=== PATIENT | male | born 1950 | race Caucasian/White ===

== ENCOUNTER → 2016-05-28 | Outpatient (CLI) | payer BC ==
[2016-05-28 12:45] LABS: CHOLESTEROL/HDL RATIO 3.5
[2016-05-28 12:50] LABS: ESTIMATED AVERAGE GLUCOSE 120 mg/dl; HA1C FLAG Normal (Normal)
== END | disposition home or self-care (01) ==
LOC: C.LABBFT 09:35
PROVIDERS: ATTEND Internal Medicine
DX: R73.09 Other abnormal glucose (principal); E78.5 Hyperlipidemia, unspecified

== ENCOUNTER → 2016-12-04 | Outpatient (CLI) | payer BC ==
[2016-12-04 12:15] LABS: URINE APPEARANCE CLEAR (CLEAR); URINE BILIRUBIN NEG (NEG); URINE COLOR YELLOW; URINE NITRITE NEG (NEG); URINE PH 6.5 (4.5-7.5); URINE SPECIFIC GRAVITY 1.023 (1.000-1.030); UROBILINOGEN NEG (NEG); ZZUR CULT IF INDIC CLEAN CATCH NO
[2016-12-04 12:18] LABS: MANUAL MICROSCOPIC REQUIRED? NO; REVIEW REQ? NO
[2016-12-04 13:06] LABS: ESTIMATED AVERAGE GLUCOSE 120 mg/dl; HA1C FLAG Normal (Normal)
[2016-12-04 17:33] LABS: ALT/SGPT 27 U/L (12-78); AST/SGOT 19 U/L (15-37); BLOOD UREA NITROGEN 15 mg/dl (7-18); CALCIUM 8.7 mg/dl (8.5-10.1); CARBON DIOXIDE 28 mmol/L (21-32); CHLORIDE 110 mmol/L (98-107); GLUCOSE 98 mg/dl (70-99); POTASSIUM 4.4 mmol/L (3.5-5.1); SODIUM 141 mmol/L (136-145)
[2016-12-04 17:38] LABS: ALB/GLOB RATIO 1.1 (0.9-2); ALKALINE PHOSPHATASE 91 U/L (45-117); CHOLESTEROL 185 mg/dl (0-200); CHOLESTEROL/HDL RATIO 4.2; HDL CHOLESTEROL 44 mg/dl; LDL CHOLESTEROL CALCULATED 120 mg/dl; PROSTATE SPECIFIC ANTIGEN 0.459 ng/ml (0.000-4.000); TRIGLYCERIDES 103 mg/dl (0-150); VERY LOW DENSITY LIPOPROT CALC 21 mg/dl
== END | disposition home or self-care (01) ==
LOC: C.LABBFT 11:08
PROVIDERS: ATTEND Physician Assistant Medical
DX: N40.1 Benign prostatic hyperplasia with lower urinary tract symptoms (principal); E78.5 Hyperlipidemia, unspecified; R73.03 Prediabetes

== ENCOUNTER 2019-02-02 12:10 | Inpatient (IN) ==
[2019-02-02 13:01] LABS: Basophils # (auto) 0.02 K/uL (0-0.2); Basophils % (auto) 0.3 %; Eosinophils % (auto) 1.6 %; Hematocrit (blood only) 42.6 % (42-52); Hemoglobin 14.5 g/dL (14.0-18.0); Immature Granulocytes # (auto) 0.02 K/uL (0.00-0.02); Immature Granulocytes % (auto) 0.3 %; Lymphocytes # (auto) 2.67 K/uL (1.2-3.4); Lymphocytes % (auto) 43.2 %; Mean Corpuscular Hemoglobin 30.1 pg (25-34); Mean Corpuscular Volume 88.4 fL (80-100); Monocytes # (auto) 0.57 K/uL (0.11-0.59); Monocytes % (auto) 9.2 %; Neutrophils % (auto) 45.4 %; Platelet Count 229 K/uL (130-400); RDW Coefficient of Variation 13.6 % (11.5-14.5); RDW Standard Deviation 44.4 fL (36.4-46.3); Red Blood Count 4.82 M/uL (4.7-6.1); White Blood Count 6.18 K/uL (4.8-10.8)
[2019-02-02 13:08] LABS: Alanine Aminotransferase 23 U/L (12-78); Albumin Level 3.7 gm/dl (3.4-5.0); Aspartate Aminotransferase 16 U/L (15-37); BUN Creatinine Ratio 10.7 (10-20); Blood Urea Nitrogen 13 mg/dl (7-18); Calcium 8.6 mg/dl (8.5-10.1); Carbon Dioxide 18 mmol/L (21-32); Chloride 107 mmol/L (98-107); Est GFR (African American) 70.7; Glucose 163 mg/dl (70-99); Magnesium 2.1 mg/dl (1.8-2.4); Partial Thromboplastin Ratio 0.8; Partial Thromboplastin Time 21.2 Seconds (21.0-31.0); Potassium 3.1 mmol/L (3.5-5.1); Prothrombin Time 10.5 Seconds (9.0-12.0); Sodium 137 mmol/L (136-145)
--- NOTE | 2019-02-02 13:14 | XRay Report ---
XR chest 1V portable CLINICAL HISTORY: Dyspnea pain. Edema. COMPARISON STUDY: 12/20/2015 FINDINGS: The bones soft tissues and hemidiaphragms are normal. The cardiomediastinal silhouette is n ormal. The lungs are clear. The pulmonary vasculature is normal. IMPRESSION: Negative chest. The above report was generated using voice recognition software. It may contain grammatical, syntax or spelling errors. Electronically signed by: Thuan Rios M.D. 02/02/2019 1:12 PM
[2019-02-02 13:20] LABS: Albumin Globulin Ratio 1.1 (0.9-2); Alkaline Phosphatase 89 U/L (45-117); Bilirubin,Total 0.9 mg/dl (0.2-1); Globulin 3.4 gm/dl (2.5-4.0); Phosphorus 0.5 mg/dl (2.5-4.9); Total Protein 7.1 gm/dl (6.4-8.2); Troponin I < 0.015 ng/ml (0-0.045)
[2019-02-02] MEDS ORDERED: POTASSIUM PHOS 3 MMOL/1 ML INFUSION IV STA (13:45)
[2019-02-02] MEDS ORDERED: POT PHOSPHATE MONOBASIC W/ SOD TAB PO STA (13:45)
[2019-02-02] MEDS ORDERED: POTASSIUM PHOSPHATE 15 MMOL in SODIUM CHLORIDE 0.9% 250 ML IV ONE (14:00)
--- NOTE | 2019-02-02 14:43 | History & Physical Report ---
Date of Service February 02, 2019 Assessment & Plan (1) Hypokalemia: Add potassium supplements. Repeat labs in a.m. Present on Admission?: Yes (2) Hypophosphatemia: And phosphorus supplements. Repeat labs in a.m. Present on Admission?: Yes (3) Prolonged QT interval: Secondary to electrolyte imbalance. Repeat EKG in a.m. Present on Admission?: Yes (4) Anxiety: Continue home medications (5) Hyperlipidemia: Continue statins. History of Present Illness Chief Complaint: Generalized weakness Primary Care Provider: Jeet Theodore MD The patient is 69 years old male who is complaining of generalized weakness. His symptoms started this morning when he started to complain of dizziness and lightheadedness. No nausea /vomiting. No chest pain /no shortness of breath. He is complaining of fatigue and malaise. The further work-up done in the emergency room shows that patient has hypokalemia and hypophosphatemia and prolonged QT interval. The patient was started on potassium supplement and phosphorus supplements and will be admitted for further evaluation and management. Allergies Allergy/AdvReac Type Severity Reaction Status Date / Time Penicillins Allergy Intermediate HIVES Verified 02/02/19 13:05 Home Medications Home Medications Medication Instructions Recorded Confirmed Type aspirin 81 mg PO QAM 07/22/18 02/02/19 History atorvastatin 10 mg PO HS 07/22/18 02/02/19 History lorazepam 0.5 mg PO HS PRN 07/22/18 02/02/19 History ibuprofen 200 mg PO Q6H PRN 02/02/19 02/02/19 History Past Med/Surg History Medical History Anxiety (Acute) Hyperlipidemia (Acute) Umbilical hernia (Acute) Speech abnormality (Acute) Pre-diabetes (Acute) Plantar fasciitis (Acute) Microscopic hematuria (Acute) Male erectile disorder of organic origin (Acute) Lumbar strain (Acute) Lower back pain (Acute) Insomnia (Acute) Hearing loss (Acute) Esophageal reflux (Acute) Enlarged prostate with lower urinary tract symptoms (LUTS) (Acute) Eczema (Acute) Decreased libido (Acute) Community acquired pneumonia (Acute) Benign prostatic hyperplasia (Acute) Benign colonic polyp (Acute) Anxiety Chronic back pain History of colon polyps Hyperlipidemia Osteoarthritis Surgical History History of colonoscopy History of repair of left rotator cuff History of right inguinal hernia repair History of thyroglossal duct cyst removal benign History of wisdom tooth extraction Family History Father Family history of diabetes mellitus Other No family history of adverse response to anesthesia Social History Preferred Language: Cook Islander Communication Ability: Effective Chemist Instrumentation Required: No Beliefs That Will Affect Care: None Current Living Situation: Spouse Feels Safe at Home: Yes Smoking Status: Never smoker Second Hand Exposure: Yes (parents smoked) ; Hx Alcohol Use: Yes Alcohol type: hard liquor Hx Substance Use: No Review of Systems Review of Systems: All systems reviewed & are unremarkable except as noted in HPI & below Constitutional: + sweats, + fatigue, + malaise and + weakness Physical Exam Physical Exam: GENERAL : No acute distress EYES: No icterus, gaze conjugate NOSE: No evidence of epistaxis MOUTH: No lesions or candidiasis, mucosa moist NECK: Supple LUNGS: CTA B/L, no wheezes, rales or rhonchi HEART: Regular, rate controlled ABDOMEN: Soft, NT, ND, BS Present EXTREMITIES: No LE edema, pedal pulses intact NEURO: A&OX3 Results & Data Vital Signs (Past 12 Hours) Vital Signs Pulse Resp BP Pulse Ox 02/02/19 13:00 65 15 132/89 98 02/02/19 12:53 99 02/02/19 12:33 63 14 98 02/02/19 12:30 63 16 133/78 02/02/19 12:25 99 02/02/19 12:13 71 18 145/86 H 99 Laboratory Results 02/02/19 12:24 02/02/19 12:24 02/02/19 02/02/19 02/02/19 Range/Units 12:24 12:24 12:24 WBC 6.18 (4.8-10.8) K/uL RBC 4.82 (4.7-6.1) M/uL Hgb 14.5 (14.0-18.0) g/dL Hct 42.6 (42-52) % MCV 88.4 (80-100) fL MCH 30.1 (25-34) pg MCHC 34.0 (32-36) g/dL RDW Std Deviation 44.4 (36.4-46.3) fL RDW Coeff of Melva 13.6 (11.5-14.5) % Plt Count 229 (130-400) K/uL MPV 10.0 (7.4-10.4) fL Immature Gran % (Auto) 0.3 % Neut % (Auto) 45.4 % Lymph % (Auto) 43.2 % [place] % (Auto) 9.2 % Eos % (Auto) 1.6 % Baso % (Auto) 0.3 % Immature Gran # (Auto) 0.02 (0.00-0.02) K/uL Neut # (Auto) 2.80 (1.4-6.5) K/uL Lymph # (Auto) 2.67 (1.2-3.4) K/uL [place] # (Auto) 0.57 (0.11-0.59) K/uL Eos # (Auto) 0.10 (0-0.5) K/uL Baso # (Auto) 0.02 (0-0.2) K/uL PT 10.5 (9.0-12.0) Seconds INR 1.0 (0.9-1.1) APTT 21.2 (21.0-31.0) Seconds PTT Ratio 0.8 Sodium 137 (136-145) mmol/L Potassium 3.1 L (3.5-5.1) mmol/L Chloride 107 (98-107) mmol/L Carbon Dioxide 18 L (21-32) mmol/L Anion Gap 12.0 H (3-11) BUN 13 (7-18) mg/dl Creatinine 1.22 (0.6-1.4) mg/dl Est Cr Clr Drug Dosing Not Reportable Est GFR ( Amer) 70.7 Est GFR (Non-Af Amer) 61.0 BUN/Creatinine Ratio 10.7 (10-20) Glucose 163 H (70-99) mg/dl Calcium 8.6 (8.5-10.1) mg/dl Phosphorus 0.5 L* (2.5-4.9) mg/dl Magnesium 2.1 (1.8-2.4) mg/dl Total Bilirubin 0.9 (0.2-1) mg/dl AST 16 (15-37) U/L ALT 23 (12-78) U/L Alkaline Phosphatase 89 (45-117) U/L Troponin I < 0.015 (0-0.045) ng/ml Total Protein 7.1 (6.4-8.2) gm/dl Albumin 3.7 (3.4-5.0) gm/dl Globulin 3.4 (2.5-4.0) gm/dl Albumin/Globulin Ratio 1.1 (0.9-2) Diagnostic Findings XR chest 1V portable CLINICAL HISTORY: Dyspnea pain. Edema. COMPARISON STUDY: 12/20/2015 FINDINGS: The bones soft tissues and hemidiaphragms are normal. The cardiomediastinal silhouette is normal. The lungs are clear. The pulmonary vasculature is normal. IMPRESSION: Negative chest. Code Status & VTE Plan Code Status full code PG Care Time/CCT Total # of Minutes Spent Total Time Spent with Patient: Total time spent is greater than 50% in coordination of care (as documented) at patient's floor/unit and/or counseling patient:
[2019-02-02] MEDS ORDERED: LORazepam 0.5 MG TAB PO PRN (16:41)
[2019-02-02] MEDS ORDERED: IBUPROFEN 200 MG TAB PO PRN (16:41)
--- NOTE | 2019-02-02 16:46 | Emergency Department Note ---
Entered by Ilene Moran acting as a scribe for Rober Nazario MD History of Present Illness General Chief complaint: Shortness of Breath/Dyspnea Stated complaint: NUMBNESS IN HANDS/FEET, CHEST PAIN, SOB, SWEATY Time Seen by Provider: 02/02/19 12:27 Source: patient Limitations: no limitations History of Present Illness Onset (ago): hour(s) 2 Location: chest Pain Consistency: + constant Quality: + other (SOB) Relieved By: + none Exacerbated By: + other (walking) Associated symptoms: + other ("needles in the feet and hands" ); no chest pain and no cough The patient is a 69 white male w/ PMHx HLD, pre-diabetes, anxiety, LUTS, and pneumonia who presents to the ED w/ CC of constant chest pain beginning this morning at 10:30, about 2 hours ago. He complains of chills and diaphoresis after the onset of the SOB. He states that he got dizzy, nausea, and weak. The patient notes that he laid down on a sofa for 45 minutes, but that provided no relief. He notes that walking exacerbates the SOB. He complains of "needles in the feet and hands." The patient denies any CP and cough. He denies any history of DVT or PE. The patient notes that he took a 12 hour car trip about 3 weeks ago. He notes that he's been working more over the past few weeks. The patient denies any history of smoking, recent surgeries, and exposure to any new chemicals. Home Medications Home Medications Medication Instructions Recorded Confirmed Type aspirin 81 mg PO QAM 07/22/18 02/02/19 History atorvastatin 10 mg PO HS 07/22/18 02/02/19 History lorazepam 0.5 mg PO HS PRN 07/22/18 02/02/19 History ibuprofen 200 mg PO Q6H PRN 02/02/19 02/02/19 History Allergies Allergy/AdvReac Type Severity Reaction Status Date / Time Penicillins Allergy Intermediate HIVES Verified 02/02/19 13:05 Past Med/Surg History Medical History Anxiety (Acute) Hyperlipidemia (Acute) Umbilical hernia (Acute) Speech abnormality (Acute) Pre-diabetes (Acute) Plantar fasciitis (Acute) Microscopic hematuria (Acute) Male erectile disorder of organic origin (Acute) Lumbar strain (Acute) Lower back pain (Acute) Insomnia (Acute) Hearing loss (Acute) Esophageal reflux (Acute) Enlarged prostate with lower urinary tract symptoms (LUTS) (Acute) Eczema (Acute) Decreased libido (Acute) Community acquired pneumonia (Acute) Benign prostatic hyperplasia (Acute) Benign colonic polyp (Acute) Anxiety Chronic back pain History of colon polyps Hyperlipidemia Osteoarthritis Surgical History History of colonoscopy History of repair of left rotator cuff History of right inguinal hernia repair History of thyroglossal duct cyst removal benign History of wisdom tooth extraction Family History Father Family history of diabetes mellitus Other No family history of adverse response to anesthesia Social History Preferred Language: Bulgarian Communication Ability: Effective 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 and A total of 10 systems reviewed and were otherwise negative Physical Exam Vital Signs Vital Signs - 24 hr 02/02/19 12:13 02/02/19 12:25 02/02/19 12:30 Sepsis Recent Fever Within 48 Hours No Sepsis New/Unexplained Change in Mental Status No Sepsis Action Taken by Nursing No Action Required Pulse Rate 71 63 Pulse Rate from SpO2 Sensor 63 Respiratory Rate 18 16 Respiratory Effort / Characteristics Non-Labored Spontaneous Respiratory Depth Normal Normal Respiratory Pattern Regular Blood Pressure 145/86 H 133/78 Blood Pressure Mean 105 96 Pulse Oximetry 99 99 Oxygen Delivery Method Room Air Room Air 02/02/19 12:33 02/02/19 12:53 02/02/19 13:00 Sepsis Recent Fever Within 48 Hours Sepsis New/Unexplained Change in Mental Status Sepsis Action Taken by Nursing Pulse Rate 63 65 Pulse Rate from SpO2 Sensor 63 65 Respiratory Rate 14 15 Respiratory Effort / Characteristics Respiratory Depth Respiratory Pattern Blood Pressure 132/89 Blood Pressure Mean 103 Pulse Oximetry 98 99 98 Oxygen Delivery Method Room Air 02/02/19 13:30 02/02/19 14:00 02/02/19 14:30 Sepsis Recent Fever Within 48 Hours Sepsis New/Unexplained Change in Mental Status Sepsis Action Taken by Nursing Pulse Rate 63 69 72 Pulse Rate from SpO2 Sensor 64 68 71 Respiratory Rate 18 15 20 Respiratory Effort / Characteristics Respiratory Depth Respiratory Pattern Blood Pressure 122/76 134/86 150/94 H Blood Pressure Mean 91 102 112 Pulse Oximetry 94 96 97 Oxygen Delivery Method 02/02/19 15:02 Sepsis Recent Fever Within 48 Hours Sepsis New/Unexplained Change in Mental Status Sepsis Action Taken by Nursing Pulse Rate 65 Pulse Rate from SpO2 Sensor 66 Respiratory Rate 15 Respiratory Effort / Characteristics Respiratory Depth Respiratory Pattern Blood Pressure 153/96 H Blood Pressure Mean 115 Pulse Oximetry 96 Oxygen Delivery Method GENERAL: Well appearing, well nourished, NAD, non-toxic. Wearing glasses. EYE EXAM: Normal conjunctiva. PERRL, no anisocoria and EOM's grossly intact w/o pain. OROPHARYNX: Moist mucous membranes. Grossly normal dentition. NECK: Supple, no nuchal rigidity, no adenopathy, non-tender. No signs of meningismus. LUNGS: Clear to auscultation. Normal chest wall mechanics. HEART: NSR, no MRG. ABDOMEN: Abdomen soft, non-tender, normo-active bowel sounds, no masses, no rebound or guarding. BACK: No CVA TTP. SKIN: No rashes and no bruising. UPPER EXTREMITIES: Upper extremities are grossly normal. LOWER EXTREMITIES: No pitting edema. No calf pain. Negative Aldo's sign. NEURO EXAM: A&O x3, cranial nerves II-XII grossly intact, normal speech, moves all 4 extremities on command w/o issue. Course 1233: The patient was evaluated in room C11B. A complete history and physical exam was performed. 1400: I updated the patient and his results, and he was agreeable to be admitted. 1413: I spoke with Dr. Castillo, [facility] hospitalist, about the patients case. He will further evaluate the patient. Administered Medications Potassium Phosphate 15 mmol/ (Sodium Chloride) 255 mls @ 88 mls/hr IV ONE ONE Stop: 02/02/19 16:53 Last Admin: 02/02/19 14:24 Dose: 88 mls/hr Documented by: [id number] Discontinued Medications Potassium Phosphate (Phospha 250 Neutral 155-852-130 Mg) 2 tab PO NOW STA Stop: 02/02/19 13:46 Last Admin: 02/02/19 14:23 Dose: 2 tab Documented by: [id number] Medical Decision Making Differential Diagnosis Etiologies such as infections, reactive airway disease, COPD, pneumonia, pleural effusion, pulmonary edema, ARDS, pneumothorax, CHF, cardiac ischemia, cardiac tamponade, dysrhythmia, anemia, pulmonary embolism, musculoskeletal, gastrointestinal process, as well as others were entertained. Medical Records Attestation: I reviewed the patient's medical records. Home Medications Current Medication List: was personally reviewed by me Laboratory Data Attestation: I reviewed the patient's lab results. Result diagrams: 02/02/19 12:24 02/02/19 12:24 Lab Results 02/02/19 02/02/19 02/02/19 Range/Units 12:24 12:24 12:24 WBC 6.18 (4.8-10.8) K/uL RBC 4.82 (4.7-6.1) M/uL Hgb 14.5 (14.0-18.0) g/dL Hct 42.6 (42-52) % MCV 88.4 (80-100) fL MCH 30.1 (25-34) pg MCHC 34.0 (32-36) g/dL RDW Std Deviation 44.4 (36.4-46.3) fL RDW Coeff of Melva 13.6 (11.5-14.5) % Plt Count 229 (130-400) K/uL MPV 10.0 (7.4-10.4) fL Immature Gran % (Auto) 0.3 % Neut % (Auto) 45.4 % Lymph % (Auto) 43.2 % [place] % (Auto) 9.2 % Eos % (Auto) 1.6 % Baso % (Auto) 0.3 % Immature Gran # (Auto) 0.02 (0.00-0.02) K/uL Neut # (Auto) 2.80 (1.4-6.5) K/uL Lymph # (Auto) 2.67 (1.2-3.4) K/uL [place] # (Auto) 0.57 (0.11-0.59) K/uL Eos # (Auto) 0.10 (0-0.5) K/uL Baso # (Auto) 0.02 (0-0.2) K/uL PT 10.5 (9.0-12.0) Seconds INR 1.0 (0.9-1.1) APTT 21.2 (21.0-31.0) Seconds PTT Ratio 0.8 Sodium 137 (136-145) mmol/L Potassium 3.1 L (3.5-5.1) mmol/L Chloride 107 (98-107) mmol/L Carbon Dioxide 18 L (21-32) mmol/L Anion Gap 12.0 H (3-11) BUN 13 (7-18) mg/dl Creatinine 1.22 (0.6-1.4) mg/dl Est Cr Clr Drug Dosing Not Reportable Est GFR ( Amer) 70.7 Est GFR (Non-Af Amer) 61.0 BUN/Creatinine Ratio 10.7 (10-20) Glucose 163 H (70-99) mg/dl Calcium 8.6 (8.5-10.1) mg/dl Phosphorus 0.5 L* (2.5-4.9) mg/dl Magnesium 2.1 (1.8-2.4) mg/dl Total Bilirubin 0.9 (0.2-1) mg/dl AST 16 (15-37) U/L ALT 23 (12-78) U/L Alkaline Phosphatase 89 (45-117) U/L Troponin I < 0.015 (0-0.045) ng/ml Total Protein 7.1 (6.4-8.2) gm/dl Albumin 3.7 (3.4-5.0) gm/dl Globulin 3.4 (2.5-4.0) gm/dl Albumin/Globulin Ratio 1.1 (0.9-2) Imaging Data Radiologist's Impression: Radiology results as stated below per my review and the radiologist's interpretation: XR chest 1V portable CLINICAL HISTORY: Dyspnea pain. Edema. COMPARISON STUDY: 12/20/2015 FINDINGS: The bones soft tissues and hemidiaphragms are normal. The cardiomediastinal silhouette is normal. The lungs are clear. The pulmonary vasculature is normal. IMPRESSION: Negative chest. The above report was generated using voice recognition software. It may contain grammatical, syntax or spelling errors. Electronically signed by: Thuan Rios M.D. 02/02/2019 1:12 PM ECG Data Attestation: I personally reviewed and interpreted this ECG as follows: Indication: SOB/dyspnea Rate (beats per minute): 69 Rhythm: normal sinus Findings: + other (prolonged QT, normal axis, Q wave in lead 3) Blood Pressure Blood Pressure Findings: Elevated blood pressure Blood Pressure Disposition: further management by hospitalist GROVER Montejo The patient is a 69 white male w/ PMHx HLD, pre-diabetes, anxiety, LUTS, and pneumonia who presents to the ED w/ CC of constant chest pain beginning this morning at 10:30, about 2 hours ago. Patient was seen in eval at the bedside. Patient does complain of acute onset of shortness of breath around 1030. The patient does not appear in extremis. Patient is not tachypneic or tachycardic. Nursing did relate that the patient was sleeping did desat to the 70s. The patient may have an element of obstructive sleep apnea. Patient does not have any coarse breath sounds blunted bases or crackles. Patient's lower extremities are free of edema. The patient did have blood work completed along with EKG chest x-ray. Of note the patient does work as a benefit director but denies any inhalation of noxious stimuli. Patient's EKG does show prolonged QT. The patient does have hypokalemia and hypophosphatemia. Reassessment the patient does state that he feels improved. I discussed with the patient that the concern is that repletion of phosphorus would take a significant amount of time I do not believe that it would be aguilera to send home given his prolonged QT as well as concern for possible arrhythmia. Patient is agreeable to staying. Patient's troponin is negative. No obvious ischemic changes on EKG. single Q waves noted but only in lead III. Chest x-ray is clear. I believe PE to be unlikely. I believe the patient's shortness of breath is related to some weakness which may have been precipitated by his hypophosphatemia. Do not believe that this is atypical chest pain given the patient's history and physical exam. No lower cavity swelling with a clear chest x-ray. Denies infectious symptoms. Impression & Plan SOB (shortness of breath), Hypokalemia, Hypophosphatemia, Prolonged QT interval Discharge Plan Visit Data Chief Complaint: Shortness of Breath/Dyspnea Stated Complaint: NUMBNESS IN HANDS/FEET, CHEST PAIN, SOB, SWEATY ED Provider: Rober Nazario Discharge Problem: SOB (shortness of breath), Hypokalemia, Hypophosphatemia, Prolonged QT interval Patient Disposition: Being Evaluated by Hospitalist Discharge Instructions Interventions: ED Discharge Assessment Last Done: 02/02/19 16:22 The scribe's documentation has been prepared under my direction and personally reviewed by me in its entirety. I confirm that the note above accurately reflects all work, treatment, procedures, and medical decision making performed by me.
[2019-02-02] MEDS ORDERED: POTASSIUM PHOSPHATE 6 MMOL in 0.9 % SODIUM CHLORIDE 100 ML IV ONE (17:15)
[2019-02-02] MEDS: HEPARIN SOD 5,000 UNIT/0.5 ML VIAL SQ SCH (20:47)
[2019-02-02] MEDS ORDERED: POTASSIUM PHOS 3 MMOL/1 ML INFUSION IV SCH (21:00)
[2019-02-02] MEDS ORDERED: ATORVASTATIN 10 MG TAB PO SCH (21:00)
[2019-02-03] MEDS: HEPARIN SOD 5,000 UNIT/0.5 ML VIAL SQ SCH ×2 (05:35→13:28)
[2019-02-03 07:26] LABS: Hematocrit (blood only) 42.3 % (42-52); Mean Corpuscular Hemoglobin 29.9 pg (25-34); Mean Corpuscular Hgb Conc 33.1 g/dL (32-36); Mean Corpuscular Volume 90.2 fL (80-100); Mean Platelet Volume 10.1 fL (7.4-10.4); Platelet Count 203 K/uL (130-400); RDW Coefficient of Variation 13.9 % (11.5-14.5); RDW Standard Deviation 45.4 fL (36.4-46.3); Red Blood Count 4.69 M/uL (4.7-6.1); White Blood Count 6.75 K/uL (4.8-10.8)
[2019-02-03] MEDS ORDERED: ASPIRIN 81 MG ECTAB PO SCH (09:00)
[2019-02-03 09:08] LABS: Phosphorus 2.3 mg/dl (2.5-4.9)
[2019-02-03] MEDS ORDERED: POT PHOSPHATE MONOBASIC W/ SOD TAB PO STA (09:56)
--- NOTE | 2019-02-03 12:25 | Hospitalist Progress Note ---
Date of Service February 03, 2019 Assessment & Plan (1) Hypokalemia: Resolved, potassium for now. Continue normal heart healthy diet (2) Hypophosphatemia: Recent is eager to go home. Phosphorus 2.3 today low normal. Given phosphorus tablets. Patient is going to see dietitian and also follow-up with dietitian. Patient would need to follow-up with primary care physician within 1 week and repeat phosphorus CMP and CBC. He will need to start a normal heart healthy diet while at home because it reach in vitamins and minerals. Patient advised to avoid processed food as well as starch filled snacks such as potato chips pretzels etc. (3) Prolonged QT interval: Resolved prolonged QT interval on a new EKG. QT interval 438/448 incomplete right bundle branch block is no longer present. Normal sinus rhythm. Patient denies any chest pain or shortness of breath (4) Anxiety: Continue home medications (5) Hyperlipidemia: Continue statins. Subjective She is seen and examined at the bedside. Reports that his diet was very poor and that he was eating only potato chips and pretzels at home. Placed order to see the dietitian.. Patient potassium and phosphorus are improved today. Patient needs to continue consuming normal heart healthy diet. Patient denies fever chills chest pain shortness of breath abdominal pain frequency urgency. Review of Systems Review of Systems: All systems reviewed & are unremarkable except as noted in HPI & below Physical Exam Constitutional: WD/WN, vitals as above well developed Eyes: PERRL, conjunctivae normal, anicteric sclerae Neck: trachea midline, no thyromegaly Respiratory: normal respiratory effort, lungs clear to auscultation Cardiovascular: RRR, no murmur, no edema Gastrointestinal (Abdomen): normal bowel sounds, soft, nontender, no hepatosplenomegaly Musculoskeletal: no cyanosis or clubbing, extremities motor strength 5/5 Skin: no rashes, warm and dry Neurologic: patellar DTR's 2+ bilat, sensation intact Psychiatric: A+Ox3, euthymic affect Lymphatic: no cervical or axillary lymphadenopathy Results & Data Vital Signs (Past 12 Hours) Vital Signs Temp Pulse Pulse Resp BP Pulse Ox 02/03/19 11:06 36.7 C 59 L 14 146/86 H 95 02/03/19 07:00 36.5 C 62 57 L 16 148/88 H 95 02/03/19 03:48 36.6 C 60 20 127/76 97 PG Care Time/CCT Total # of Minutes Spent Total Time Spent with Patient: Total time spent is greater than 50% in coordination of care (as documented) at patient's floor/unit and/or counseling patient:
--- NOTE | 2019-02-03 12:59 | Discharge Summary ---
Date of Service February 03, 2019 Admission HPI Per Admitting Provider The patient is 69 years old male who is complaining of generalized weakness. His symptoms started this morning when he started to complain of dizziness and lightheadedness. No nausea /vomiting. No chest pain /no shortness of breath. He is complaining of fatigue and malaise. The further work-up done in the emergency room shows that patient has hypokalemia and hypophosphatemia and prolonged QT interval. The patient was started on potassium supplement and phosphorus supplements and will be admitted for further evaluation and management. Principal Diagnosis none Discharge Exam Constitutional WD/WN, vitals as above well developed Eyes PERRL, conjunctivae normal, anicteric sclerae Neck trachea midline, no thyromegaly Respiratory normal respiratory effort, lungs clear to auscultation Cardiovascular RRR, no murmur, no edema Gastrointestinal (Abdomen) normal bowel sounds, soft, nontender, no hepatosplenomegaly Musculoskeletal no cyanosis or clubbing, extremities motor strength 5/5 Skin no rashes, warm and dry Neurologic patellar DTR's 2+ bilat, sensation intact Psychiatric A+Ox3, euthymic affect Lymphatic no cervical or axillary lymphadenopathy Discharge Data Allergies Allergy/AdvReac Type Severity Reaction Status Date / Time Penicillins Allergy Intermediate HIVES Verified 02/02/19 13:05 Consultations 02/02/19 14:04 ED Decision to Admit Stat Hospital Course (1) Hypokalemia: Resolved, potassium normal now. Continue normal heart healthy diet (2) Hypophosphatemia: Recent is eager to go home. Phosphorus 2.3 today low normal. Given phosphorus tablets. Patient is going to see dietitian and also follow-up with dietitian. Patient would need to follow-up with primary care physician within 1 week and repeat phosphorus CMP and CBC. He will need to start a normal heart healthy diet while at home because it reach in vitamins and minerals. Patient advised to avoid processed food as well as starch filled snacks such as potato chips pretzels etc. (3) Prolonged QT interval: Resolved prolonged QT interval on a new EKG. QT interval 438/448 incomplete right bundle branch block is no longer present. Normal sinus rhythm. Patient denies any chest pain or shortness of breath (4) Anxiety: Continue home medications (5) Hyperlipidemia: Continue statins. Total Time Total Time Spent Total Time Spent (In Minutes): over 30 min Discharge Plan Discharge Items Patient Disposition: Home - Self-Care Reason For Visit: WEAKNESS Discharge Diagnosis: malnourishment Condition on Discharge: Good Activity: Resume your previous activity Non-emergency contact: Primary Care Provider Call non-emergency contact if: you have any medication questions, your symptoms worsen, your pain is not controlled and your rectal temperature is above 100.4 Follow-up/Referrals: Jeff Theodore MD [Primary Care Provider] - Dietitian Info: Please follow-up with dietitian when appointment scheduled. Please follow-up with primary care physician and do labs within a 7 weeks such as CBC, CMP and phosphorus Diet: Heart Healthy Addtl Attending Provider Instructions: Please follow-up with primary care physician and do the labs next visit: CBC CMP and phosphorus Pending Studies at Discharge: No Stand-Alone [facility]: [facility] Medications and DC Order Prescriptions: Continued atorvastatin 10 mg Tablet 10 mg PO HS RF: 0 aspirin 81 mg Tablet,Delayed Release (Dr/Ec) 81 mg PO QAM RF: 0 lorazepam 0.5 mg Tablet 0.5 mg PO HS PRN (Reason: Anxiety) RF: 0 ibuprofen 200 mg Tablet 200 mg PO Q6H PRN (Reason: Pain) RF: 0 Discharge Orders: Discharge Order (Routine); Ordered 02/03/19 Ordered By: Emily Huerta Admission Data Admit Date/Time: 02/02/19 15:12 Attending Provider: Emily Huerta Admit Provider: Pascual Castillo Primary Care Provider: Jeff Theodore Other Providers: Pascual Castillo
[2019-02-07 16:33] LABS: Vitamin D 1,25 49 pg/mL (18-72); Vitamin D3,1,25 49 pg/mL
== END 2019-02-03 15:35 | disposition home or self-care (01) | DRG 642 ==
LOC: ED 12:10 → SUATTDRO 15:12 → 2W 15:12

== ENCOUNTER 2023-08-28 05:30 | Observation (INO) ==
--- NOTE | 2023-08-20 14:15 | Anesthesiology Consultation ---
Date of Service August 20, 2023 Assessment & Plan (1) Encounter for pre-operative examination: - Check BSG AM DOS - Infectious disease screening: Per assessment on 08/19/23: No known infectious disease contacts or current infectious disease symptoms. No noted recent Covid positive test result. - S/P colonoscopy (08/05/23): MAC at [facility] Chart Review Chart Review: Acceptable Risk for Surgery and Patient NOT seen in Pre Admission Testing History Surgery Operation Date: 08/28/23 13:00 Proposed Procedures p TURP (Transurethral Resection of the Prostate) - Frankie Alfredo DO Height/Weight Height: 6 ft Weight: 104.326 kg Allergies Allergy/AdvReac Type Severity Reaction Status Date / Time Penicillins Allergy Intermediate Hives Verified 08/20/23 14:10 Medications Home Medications Medication Instructions Recorded Confirmed Last Taken aspirin 81 mg tablet,delayed 81 mg PO HS 07/22/18 08/19/23 08/01/23 release atorvastatin 10 mg tablet 10 mg PO HS #90 tabs 09/13/22 08/19/23 08/03/23 buspirone 10 mg tablet 10 mg PO TID PRN anxiety #270 tabs 09/13/22 08/19/23 08/03/23 sodium di- and 2 tab PO BID #360 tabs 05/08/23 08/19/23 08/03/23 monophosphate-potassium phos monobasic 250 mg tablet (Phospha Neutral) lorazepam 0.5 mg tablet 0.5 mg PO ONCE PRN anxiety #2 tabs 07/10/23 08/19/23 Unknown tadalafil 5 mg tablet 5 mg PO HS 07/24/23 08/19/23 Unknown Past Medical History Medical History Anxiety Benign colonic polyp Hx Chronic back pain Occasional Decreased libido Eczema Hx Enlarged prostate with lower urinary tract symptoms (LUTS) Esophageal reflux Hx, no current issues Hearing loss B/L hearing aids Internal auditory canal MRI 07/2023: No acute intracranial abnormality. No acute or subacute infarct. Unremarkable appearance of the internal auditory canals. No abnormal enhancement. Hyperlipidemia Insomnia Left knee DJD Leg cramps Rare Male erectile disorder of organic origin Nocturia more than twice per night Osteoarthritis Patellofemoral disorders, left knee Pre-diabetes Diet controlled Speech abnormality Tear of biceps tendon Right, had PT Umbilical hernia Past Family History Family History Father Family history of diabetes mellitus Hypertension Diabetes Brother Heart disease Mother Lung cancer Other No family history of adverse response to anesthesia No family history of bleeding disorder Denies family history of Prostate cancer Breast cancer Colorectal cancer Past Surgical History Surgical History History of colonoscopy Most recent 07/2023 History of repair of left rotator cuff History of right inguinal hernia repair History of thyroglossal duct cyst removal 1972, benign History of wisdom tooth extraction Social History Smoking Status: Never smoker Do You Dip or Chew Tobacco: No Hx Alcohol Use: No Alcohol type: hard liquor alcohol intake frequency: holidays/special occasions only Hx Substance Use: No substance use type: does not use Lab Results Anesthesia Preop Results Results Anesthesia Widget: WBC 4.85 K/ul (4.8-10.8) 08/20/23 Hgb 13.7 g/dl (14.0-18.0) L 08/20/23 Hct 41.9 % (42.0-52.0) L 08/20/23 Plt 208 K/uL (130-400) 08/20/23 Na 137 mmol/L (136-145) 08/20/23 K 4.0 mmol/L (3.5-5.1) 08/20/23 Cl 108 mmol/L (98-107) H 08/20/23 CO2 24 mmol/L (21-32) 08/20/23 BUN 11 mg/dl (6-23) 08/20/23 Creat 0.92 mg/dl (0.6-1.4) 08/20/23 Glucose Level 102 mg/dl (70-99(Fasting)) H 08/20/23 Testing Laboratory Results Urine culture (08/20/23): pending Electrocardiogram Date: 08/20/23 NSR at 62bpm. iRBBB. unconfirmed report. Chest X-Ray Date: 08/20/23 FINDINGS: Cardiomediastinal and hilar silhouettes are within normal limits. Mild hyperinflation with diaphragmatic flattening. No pneumothorax, pleural effusion or airspace consolidation. The bones appear grossly intact. IMPRESSION: No acute process.
[~2023-08-28 05:30] MED LIST: ALLERGY Noted to ORDERED Medication SCH
[2023-08-28] MEDS: LACTATED RINGER'S 1,000 ML IV SCH (06:10)
[2023-08-28] MEDS ORDERED: ATROPINE SULFATE 0.1 MG/ML 10ML SYR IV PRN (06:33)
[2023-08-28] MEDS ORDERED: ONDANSETRON INJ 2 MG/ML 2 ML VIAL IV PRN (06:33)
[2023-08-28] MEDS ORDERED: ePHEDrine sulfate 50 MG/ML AMP IV PRN (06:33)
[2023-08-28] MEDS ORDERED: fentaNYL citrate PF 100 MCG/2 ML VIAL IV PRN (06:33)
[2023-08-28] MEDS ORDERED: oxyBUTYnin chloride 5 MG TAB PO PRN (06:36)
[2023-08-28] MEDS ORDERED: oxyCODONE/ACETAMINOPHEN 5mg/325mg TAB PO PRN (06:36)
[2023-08-28] MEDS ORDERED: PHENAZOPYRIDINE HCL 200 MG TAB PO PRN (06:36)
--- NOTE | 2023-08-28 06:36 | History & Physical Bridge Note ---
Date of Service August 28, 2023 History & Physical Bridge Note I have examined the patient, reviewed the History & Physical and in the interval since the performance of the History & Physical I have noted the following changes of clinical significance: no changes noted
[2023-08-28] MEDS ORDERED: Nursing to Pharmacy Communication SCH (06:45)
[2023-08-28] MEDS ORDERED: ONDANSETRON INJ 2 MG/ML 2 ML VIAL ONE (06:48)
[2023-08-28] MEDS ORDERED: MIDAZOLAM HCL 1 MG/ML 2ML VIAL ONE (06:48)
[2023-08-28] MEDS ORDERED: DEXAMETHASONE SOD INJ 4 MG/ML VIAL ONE (06:48)
[2023-08-28] MEDS ORDERED: PROPOFOL IV EMULSION 10 MG/ML 20 ML VIAL IV ONE (06:48)
[2023-08-28] MEDS ORDERED: LIDOCAINE 2% 2 ML VIAL/AMP(20MG/ML) INFIL ONE (06:48)
[2023-08-28] MEDS ORDERED: fentaNYL citrate PF 100 MCG/2 ML VIAL ONE (06:49)
[2023-08-28] MEDS: ceFAZolin 2,000 MG/15 ML IV PUSH IV ONE (06:55)
--- NOTE | 2023-08-28 07:50 | Operative Report ---
[facility] Post Operative Report Pre & Post Diagnosis Operation Date: 08/28/23 07:00 Pre-Op Diagnosis: Microscopic Hematuria, Benign Prostatic Hyperplasia Post-Op Diagnosis: Microscopic Hematuria, Benign Prostatic Hyperplasia I identified the patient and participated in the time-out.: Yes Procedure Operation Date: 08/28/23 07:00 Actual Procedures p Transurethral Resection of the Prostate(Not Applicable) - Frankie Alfredo DO Surgeon Frankie Alfredo, II, DO Transfer Specialist None Estimated Blood Loss 5 Findings Consistent with Post-Op Diagnosis Large Prostate with very large median lobe obstruction. Small 1-2 mm stones in base of bladder. Specimens Prostate adenoma. Drains 22Fr [address] Catheter Anesthesia Type General Complications none Disposition Disposition: Recovery Room Indications Patient with obstruction due to prostate enlargement. Risks and benefits discussed at length. Description of Procedure Patient was consented and brought back to the operating room. Patient was placed under anesthesia in the supine position and moved to the dorsal lithotomy position. Patient was prepped and draped in the regular sterile fashion. A time out was completed. A 30degree Cystoscope was placed into the bladder and the entire bladder was examined. The UO's were identified as well as the bladder neck, trigone, dome, and the other important landmarks. The prostatic urethra and large lobes/adenoma was assessed and the veru and bladder neck identified and area/size was assessed. The resection scope was placed and the fine bipolar loop was selected. Starting at the 5 and 7 o'clock positions, a channel was created from bladder neck to the veru. The very large median lobe was resected down. Once resected, the 11 and 1 o'clock position was resected down to capsule fibers sweeping down to the median channel. The Specimen was removed and sent for analysis. The resection bed and any bleeding areas were fulgurated/cauterized and the entire area inspected. All bleeding was controlled. The bladder was inspected a final time. The bladder was emptied and irrigated. All specimen and debris was removed. The scope was removed with the bladder partially full. A catheter was placed and balloon elevated. This was easily irrigated. The patient was cleaned, aroused from anesthesia, and transferred to the pacu in stable condition having tolerated the procedure well with no complications. I was present and participated in all aspects of the procedure. The patient will be monitored in the PACU until transferred. Plan to monitor overnight and maintain catheter for approx 7 days with removal in office. I attest to the content of the Intraoperative Record and any orders documented therein. Any exceptions are noted below.
[2023-08-28] MEDS: ceFAZolin 2000MG 2,000 MG/15 ML SYR IV SCH (07:53)
[2023-08-28] MEDS ORDERED: busPIRone 5 MG TAB PO PRN (08:06)
[2023-08-28 08:19] LABS: Basophils # (auto) 0.03 K/uL (0.00-0.20); Basophils % (auto) 0.7 %; Eosinophils # (auto) 0.11 K/uL (0.00-0.50); Eosinophils % (auto) 2.5 %; Hematocrit (blood only) 40.3 % (42.0-52.0); Hemoglobin 13.1 g/dl (14.0-18.0); Immature Granulocytes # (auto) 0.01 K/uL (0.01-0.20); Immature Granulocytes % (auto) 0.2 %; Lymphocytes # (auto) 1.64 K/uL (1.20-3.40); Lymphocytes % (auto) 37.2 %; Mean Corpuscular Hemoglobin 29.4 pg (25.0-34.0); Mean Corpuscular Hgb Conc 32.5 g/dL (32.0-36.0); Mean Corpuscular Volume 90.6 fL (80.0-100.0); Mean Platelet Volume 9.7 fL (9.4-12.4); Monocytes # (auto) 0.43 K/uL (0.11-0.59); Monocytes % (auto) 9.8 %; Neutrophils # (auto) 2.19 K/uL (1.40-6.50); Neutrophils % (auto) 49.6 %; Platelet Count 182 K/uL (130-400); RDW Coefficient of Variation 13.2 % (11.5-14.5); RDW Standard Deviation 43.9 fL (36.4-46.3); Red Blood Count 4.45 M/uL (4.70-6.10); White Blood Count 4.41 K/ul (4.8-10.8)
[2023-08-28 08:35] LABS: Albumin Globulin Ratio 1.6 (0.9-2); Albumin Level 3.5 gm/dl (3.4-5.0); BUN Creatinine Ratio 19.2 (10-20); Bilirubin,Total 0.5 mg/dl (0.2-1.0); Calcium 7.8 mg/dl (8.6-10.3); Creatinine Clr Calc Pharmacy 86.3 ml/min; Est GFR (African American) 88.4 ml/min; Est GFR (Non-African American) 76.3 ml/min; Globulin 2.2 gm/dl (2.5-4.0); Potassium 4.2 mmol/L (3.5-5.1); Total Protein 5.7 gm/dl (6.0-8.3)
--- NOTE | 2023-08-28 08:45 | Anesthesiology Progress Note ---
Date of Service August 28, 2023 Anesthesia Post Procedure Vital Signs Vital Signs: Temp Pulse Pulse Resp BP Pulse Ox O2 Del Method 08/28/23 08:30 50 L 12 158/98 H 94 Room Air 08/28/23 08:20 51 L 12 162/96 H 94 Room Air 08/28/23 08:10 50 L 12 160/96 H 95 Room Air 08/28/23 08:00 52 L 12 148/94 H 98 Nasal Cannula 08/28/23 07:52 97.0 F L 54 L 15 149/89 H 95 Nasal Cannula 08/28/23 05:53 97.7 F 53 L 18 162/99 H 97 Room Air O2 Flow Rate 08/28/23 08:30 08/28/23 08:20 08/28/23 08:10 08/28/23 08:00 3 08/28/23 07:52 3 08/28/23 05:53 Transfer of Care Handoff Completed per policy Notes Mental Status: alert / awake / arousable and participated in evaluation Patient Amnestic to Procedure: Yes Nausea / Vomiting: adequately controlled Pain: adequately controlled Airway Patency, RR, SpO2: stable & adequate BP & HR: stable & adequate Hydration State: stable & adequate Anesthetic Complications: no major complications apparent and Pt Satisfied with anesthetic care
[2023-08-28] MEDS: SODIUM CHLORIDE 0.9% 1,000 ML IV SCH (09:45)
[2023-08-28] MEDS: DOCUSATE SODIUM 100 MG CAP PO SCH (11:07)
[2023-08-28] MEDS: POT PHOSPHATE MONOBASIC W/ SOD TAB PO SCH (11:07)
[2023-08-28] MEDS: ATORVASTATIN 10 MG TAB PO SCH (20:13)
[2023-08-29] MEDS: oxyCODONE/ACETAMINOPHEN 5mg/325mg TAB PO PRN (01:13)
--- NOTE | 2023-08-29 09:41 | Urology Progress Note ---
Date of Service August 29, 2023 Assessment & Plan (1) Benign prostatic hyperplasia with urinary obstruction: Plan: - Pt POD#1 s/p TURP with Dr. Alfredo - Doing well, progressing as expected - Afebrile, hemodynamically stable - Tolerating PO diet - 3 way Lopez catheter intact, patent and draining clear yellow urine with CBI on slow - CBI clamped this morning, nursing aware - Maintain Lopez catheter - Anticipate home with Lopez catheter later today presuming urine appropriate and he continues to progress as expected - Urine remains clear yellow with CBI clamped - Discontinue CBI, plug irrigation report - Patient ready for discharge now, orders placed - Discharge with course of antibiotics - Expected clinical course reviewed, all questions answered - Will arrange outpatient follow-up with our service for voiding trial Admission and Anticipated Discharge Date Admission Date: August 28, 2023 Subjective Patient seen and examined at bedside this morning No acute issues overnight Generally tolerating Lopez catheter, but notes some discomfort at insertion site Lopez patent and draining clear yellow urine with CBI on slow CBI clamped at bedside Denies nausea, vomiting, fever or chills Review of Systems Constitutional: as per Subjective / HPI Genitourinary: + as per Subjective / HPI Physical Exam Constitutional: well developed and well nourished; no acute distress Respiratory: normal respiratory effort; no respiratory distress and no labored breathing Gastrointestinal (Abdomen): Inspection/Auscultation: abdomen normal to inspection Musculoskeletal: Head/Neck/Chest: normocephalic Neurologic: moves all extremities and awake Psychiatric: Orientation: alert and oriented x 3 Genitourinary: Lopez patent and draining clear yellow urine, CBI on slow. CBI clamped at bedside. Results & Data Vital Signs (Past 12 Hours) Vital Signs Temp Pulse Resp BP Pulse Ox O2 Del Method 08/29/23 07:06 36.5 C 53 L 17 147/81 H 95 Room Air 08/29/23 03:29 36.4 C L 58 L 16 122/75 94 Room Air 08/28/23 23:30 36.3 C L 78 16 130/81 94 Room Air PG Care Time/CCT Total # of Minutes Spent Total Time Spent with Patient: Total time spent is greater than 50% in coordination of care (as documented) at patient's floor/unit and/or counseling patient: Coding Level of Care Code None Diagnoses Benign prostatic hyperplasia with urinary obstruction N40.1; N13.8
--- NOTE | 2023-08-29 10:42 | Discharge Summary ---
Date of Service August 29, 2023 Admission HPI Per Admitting Provider Patient with microscopic hematuria and BPH here for transurethral resection of prostate. Admission Exam Per Admitting Provider General: Alert in no acute distress. HEENT: Normocephalic Atraumatic. Inspection normal. Psychologic: Normal affect. Respiratory: Nonlabored. Cardiovascular: No tachycardia Skin: Dutton and Dry. Principal Diagnosis Microscopic hematuria, benign prostatic hyperplasia Discharge Exam Constitutional well developed and well nourished; no acute distress Respiratory normal respiratory effort; no respiratory distress and no labored breathing Gastrointestinal (Abdomen) Inspection/Auscultation: abdomen normal to inspection Musculoskeletal Head/Neck/Chest: normocephalic Neurologic moves all extremities and awake Psychiatric Orientation: alert and oriented x 3 Discharge Data Allergies Allergy/AdvReac Type Severity Reaction Status Date / Time Penicillins Allergy Intermediate Hives Verified 08/28/23 05:50 Procedures Performed Operation Date: 08/28/23 07:00 Actual Procedures p Transurethral Resection of the Prostate(Not Applicable) - Frankie Alfredo, DO Hospital Course (1) Benign prostatic hyperplasia with urinary obstruction: - Pt POD#1 s/p TURP with Dr. Alfredo - Doing well, progressing as expected - Afebrile, hemodynamically stable - Tolerating PO diet - 3 way Lopez catheter intact, patent and draining clear yellow urine with CBI on slow - CBI clamped this morning, nursing aware - Maintain Lopez catheter - Anticipate home with Lopez catheter later today presuming urine appropriate and he continues to progress as expected - Urine remains clear yellow with CBI clamped - Discontinue CBI, plug irrigation report - Patient ready for discharge now, orders placed - Discharge with course of antibiotics - Expected clinical course reviewed, all questions answered - Will arrange outpatient follow-up with our service for voiding trial Total Time Total Time Spent Total Time Spent (In Minutes): 29 Discharge Plan Discharge Items Patient Disposition: Home - Self-Care Reason For Visit: Microscopic Hematuria, Benign Prostatic Hyperplasi Discharge Diagnosis: Microscopic hematuria, benign prostatic hyperplasia Activity: Per Instructions section Lifting: No more than 25 pounds Bathing Comment: Okay to shower after discharge, no tub bath or soaking Sexual Activity: Wait until after follow-up appointment Exercise/Sports: Wait until after follow-up appointment Driving/Machine Use: Resume 1 day after discharge Non-emergency contact: Surgeon and Urologist Call non-emergency contact if: your pain is not controlled, you have a fever and your temperature is above 101 Follow-up/Referrals: Jeet Theodore MD [Primary Care Provider] - [facility],Nurse [FAKAyde FOR SCHEDULES] - 09/05/23 11:20 am Diet: Regular Addtl Attending Provider Instructions: Please take all medications as prescribed and keep all follow-ups as scheduled. Please call our office at [phone] with any questions, concerns or need to reschedule appointments for any reason. We are happy to assist you. Tips for your recovery at home: Dont be alarmed by brownish or reddish blood or clots in your urine. This is a result of the procedure. This may occur off and on for weeks to months after the procedure but should continue to improve. Drink plenty of fluids during the day (enough to keep your urine very light colored). This will help keep a healthy flow of urine. Do not lift >25 lbs until your followup Avoid constipation. Please use a stool softener (Colace) for the first two weeks after your procedure Be sure to finish the antibiotics as prescribed. If you go home with a catheter, please wash tubing where it enters your body twice daily with mild soap (Dove or Dial). Once your catheter is removed, expect some blood in your urine and some burning when you urinate. You should have an appointment to have this removed, if you do not please call our office to arrange. Pending Studies at Discharge: Yes Stand-Alone Forms: My [employer], Smoking Cessation Medications and DC Order Prescriptions: New cephalexin 500 mg capsule 500 mg PO BID 7 Days Qty: 14 0RF Continued buspirone 10 mg tablet 10 mg PO TID PRN (Reason: anxiety) Qty: 270 3RF Patient Comments: takes 2 tablets QAM and 1 tablet HS atorvastatin 10 mg tablet 10 mg PO HS Qty: 90 3RF Phospha 250 Neutral 250 mg tablet 2 tab PO BID Qty: 360 3RF Rx Instructions: administer with meals lorazepam 0.5 mg tablet 0.5 mg PO ONCE PRN (Reason: anxiety) Qty: 2 0RF Rx Instructions: Take 1 tab PO 30-60 minutes prior to MRI then if needed may take the second tablet PRN claustrophobia aspirin 81 mg Tablet,Delayed Release (Dr/Ec) 81 mg PO HS Patient Comments: When patient remembers. (02/02/19) tadalafil 5 mg tablet 5 mg PO HS Discharge Orders: Discharge Order (Routine); Ordered 08/29/23 Ordered By: Manisha Barros/Other Patient Handouts: Urinary Catheter Bag Empty Clean, Indwelling Urinary Catheter Dc, Leg Bag Care Dc Admission Data Admit Date/Time: 08/28/23 06:36 Attending Provider: Frankie Alfredo Admit Provider: Frankie Alfredo Primary Care Provider: Jeet Theodore Other Interventions: Discharge Summary Assessment (RN) Last Done: 08/29/23 11:11 Coding Level of Care Code 85886 IN/OBS DISCH 30 MIN/LESS Diagnoses Benign prostatic hyperplasia with urinary obstruction N40.1; N13.8
== END 2023-08-29 11:51 | disposition home or self-care (01) ==
LOC: ASU 05:30 → 3N 05:30